=== PATIENT | female | born 2000 | race Caucasian/White ===

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

== ENCOUNTER 2019-06-08 20:13 | Emergency (ER) | payer MEDICAID ==
[~2019-06-08] VITALS: Ht 167.6 cm; Wt 49.9 kg
[2019-06-08 20:18] VITALS: Ht 167.6 cm; Wt 49.9 kg
[2019-06-08 20:51] LABS: microscopic required? YES; urine erythrocyte NEGATIVE (NEGATIVE)
[2019-06-08 21:01] LABS: BASOPHIL % 0.2 % (0-2); PLATELET COUNT 312 x10^3mcL (130-400)
[2019-06-08 21:05] LABS: CALCIUM 8.4 mg/dL (8.5-10.1); CARBON DIOXIDE 26.6 mmol/L (21-32); CHLORIDE SERUM 101 mmol/L (98-107); CREATININE SERUM 0.7 mg/dL (0.6-1.0); GFR1 > 60 mL/min; GLUCOSE SERUM 91 mg/dL (74-106); POTASSIUM SERUM 3.3 mmol/L (3.5-5.1); SODIUM SERUM 139 mmol/L (136-145)
[2019-06-08 21:09] LABS: ALBUMIN 3.5 g/dL (3.4-5.0); ALKALINE PHOSPHATASE 65 U/L (46-116); ALT/SGPT 18 U/L (14-59); AMYLASE 31 U/L (25-115); AST/SGOT 5 U/L (15-37); BILIRUBIN TOTAL 0.52 mg/dL (0.20-1.00); LIPASE 80 IU/L (73-393); TOTAL PROTEIN, SERUM 7.3 g/dL (6.4-8.2)
[2019-06-08 21:10] LABS: RED CELL DISTRIBUTION WIDTH 17.5 % (11.5-14.5)
[2019-06-08 23:52] VITALS: BP 107/63
== END 2019-06-08 23:52 | disposition home or self-care (01) ==
LOC: ED 20:13
PROVIDERS: Emergency Medicine
DX: O26.891 Other specified pregnancy related conditions, first trimester (principal); O21.8 Other vomiting complicating pregnancy; R10.30 Lower abdominal pain, unspecified; R19.7 Diarrhea, unspecified; Z3A.01 Less than 8 weeks gestation of pregnancy
CPT/HCPCS: 36415; J7040

== ENCOUNTER 2019-06-21 22:14 | Inpatient (IN) | payer MEDICAID ==
[~2019-06-21] VITALS: Ht 167.6 cm; Wt 50.1 kg
[2019-06-21 22:20] VITALS: Ht 167.6 cm; Wt 50.1 kg
[2019-06-21 23:07] LABS: PLATELET COUNT 308 x10^3mcL (130-400)
[2019-06-21 23:11] LABS: BASOPHIL % 2.6 % (0-2); RED CELL DISTRIBUTION WIDTH 19.3 % (11.5-14.5)
[2019-06-22 00:10] LABS: UA SPECIFIC GRAVITY 1.025 (1.005-1.035); microscopic required? YES; urine erythrocyte 3+ (NEGATIVE)
[2019-06-22 03:20] VITALS: BP 117/73
[2019-06-22 05:28] VITALS: BP 114/71
[2019-06-22 08:48] VITALS: BP 111/56
[2019-06-22 15:39] VITALS: BP 112/68
[2019-06-22 16:49] VITALS: BP 96/49
[2019-06-23 05:38] VITALS: BP 106/50
[2019-06-23 08:41] VITALS: BP 97/47
[2019-06-23 11:22] VITALS: BP 104/76
== END 2019-06-23 12:52 | disposition home or self-care (01) | DRG 544 ==
LOC: ED 22:14 → MU 06-22 02:06
PROVIDERS: Emergency Medicine; Obstetrics & Gynecology; ADMIT Internal Medicine
PROC: 10D17ZZ Extraction of Products of Conception, Retained, Via Natural or Artificial Opening (ICD-10-PCS; principal; 2019-06-22 14:30)
DX: O03.4 Incomplete spontaneous abortion without complication (principal); D50.0 Iron deficiency anemia secondary to blood loss (chronic); N92.0 Excessive and frequent menstruation with regular cycle; D72.829 Elevated white blood cell count, unspecified; Z68.1 Body mass index [BMI] 19.9 or less, adult
CPT/HCPCS: C1758; G0378; J0690; J2210; J2250; J2405; J2704; J3010; J7042; J7120

== ENCOUNTER 2019-10-11 08:22 | Emergency (ER) | payer MEDICAID ==
[~2019-10-11] VITALS: Ht 167.6 cm; Wt 51.3 kg
[2019-10-11 08:27] VITALS: Ht 167.6 cm; Wt 51.3 kg
[2019-10-11 10:40] VITALS: BP 120/74
== END 2019-10-11 10:40 | disposition home or self-care (01) ==
LOC: ED 08:22
DX: J20.8 Acute bronchitis due to other specified organisms (principal)
CPT/HCPCS: Q0092